=== PATIENT | female | born 1990 | race Caucasian/White ===

== ENCOUNTER 2016-04-17 19:28 | Emergency (ER) | payer OTHER ==
[2016-04-17 20:29] VITALS: BP 109/66; PULSE 69; TEMP 98.7; BMI 30.7
--- NOTE | 2016-04-17 21:10 | PDOC ---
History of Present Illness - General History Source: Patient Exam Limitations: No Limitations - History of Present Illness Initial Comments: 04/17/16 21:30 The patient is a 25 year old female (11 weeks ) with no significant past medical history who presents to the ED with vaginal bleeding that started today. Patient reports at around 5pm she noted heavy vaginal bleeding after wiping. After that, the bleeding gradually decreased on its own. She denies vaginal discharge. Patient reports suprapubic pain and bilateral flank pain. She denies nausea, vomiting, and diarrhea. She also denies dysuria, hematuria, urgency, and frequency. The patient denies fever, chills, cough, SOB, chest pain, and palpitations. Allergies: NKDA Social History: No alcohol, tobacco, or drug use reported. Past Surgical History: <Melani Hylton - Last Filed: 04/17/16 21:32> - General History Source: Patient <Masood Arteaga - Last Filed: 04/18/16 00:32> - General Chief Complaint: Vaginal Bleeding Stated Complaint: VAGINAL BLEEDING/11 WKS Time Seen by Provider: 04/17/16 21:07 Past History <Melani Hylton - Last Filed: 04/17/16 21:32> - Past Medical History Asthma: No Cancer: No Cardiac Disorders: No Diabetes: No HTN: No Seizures: No Thyroid Disease: No - Surgical History Abdominal Surgery: Yes ( x 1) - Immunization History Immunization Up to Date: Yes - Psycho/Social/Smoking Cessation Hx Suicidal Ideation: No Smoking History: Never smoked Have you smoked in the past 12 months: No Information on smoking cessation initiated: No Hx Alcohol Use: No Drug/Substance Use Hx: No Substance Use Type: None Hx Substance Use Treatment: No <Masood Arteaga - Last Filed: 04/18/16 00:32> - Past Medical History Allergies/Adverse Reactions: Allergies Allergy/AdvReac Type Severity Reaction Status Date / Time No Known Allergies Allergy Verified 04/17/16 20:25 Home Medications: Ambulatory Orders Acetaminophen [Tylenol .Regular Strength -] 650 mg PO Q4H PRN #0 tablet Ibuprofen [Motrin -] 600 mg PO Q4H PRN #0 tablet 08/12/11 Pnv Comb.no58/Iron Bisgly/FA [ Capsule] 1 each PO DAILY 30 Days Review of Systems - Review of Systems Able to Perform ROS?: Yes Comments:: 04/17/16 21:30 CONSTITUTIONAL: Absent: fever, no chills, no fatigue EYES: Absent: visual changes ENT: Absent: ear pain, no sore throat CARDIOVASCULAR: Absent: chest pain, no palpitations RESPIRATORY: Absent: cough, no SOB GI: +suprapubic pain Absent: no nausea, no vomiting, no constipation, no diarrhea GENITOURINARY: +bilateral flank pain, vaginal bleeding Absent: dysuria, no frequency, no hematuria MUSCULOSKELETAL: Absent: back pain, no arthralgia, no myalgia SKIN: Absent: rash NEURO: Absent: headache <Melani Hylton - Last Filed: 04/17/16 21:32> *Physical Exam - Vital Signs Last Vital Signs Temp Pulse Resp BP Pulse Ox 98.7 F 69 16 109/66 100 04/17/16 20:25 04/17/16 20:25 04/17/16 20:25 04/17/16 20:25 04/17/16 20:25 - Physical Exam Comments: 04/17/16 21:31 GENERAL: Well-appearing, well-nourished. No apparent distress. HEENT: Normocephalic, atraumatic. PERRL, EOM intact. CARDIOVASCULAR: Normal S1, S2. Regular rate and rhythm. PULMONARY: Clear to auscultation bilaterally. ABDOMEN: Soft, non-distended, suprapubic tenderness to palpation. PELVIC: Deferred to ultrasound MUSCULOSKELETAL: Bilateral CVA tenderness to palpation. EXTREMITIES: Normal ROM in all four extremities. No gross deformities. SKIN: Warm, dry. No rash NEUROLOGICAL: No focal neurological deficits. <Melani Hylton - Last Filed: 04/17/16 21:32> - Vital Signs Last Vital Signs Temp Pulse Resp BP Pulse Ox 98.7 F 69 16 109/66 100 04/17/16 20:25 04/17/16 20:25 04/17/16 20:25 04/17/16 20:25 04/17/16 20:25 <Masood Arteaga - Last Filed: 04/18/16 00:32> ED Treatment Course - LABORATORY CBC & Chemistry Diagram: 04/17/16 21:37 <Masood Arteaga - Last Filed: 04/18/16 00:32> Medical Decision Making - Medical Decision Making 04/18/16 00:32 Dr. Arteaga: The scribe's documentation has been prepared under my direction and personally reviewed by me in its entirery. I confirm that the note above accurately reflects all work, treatment, procedures, and medical decision making performed by me. <Masood Arteaga - Last Filed: 04/18/16 00:32> *DC/Admit/Observation/Transfer - Attestations Scribe Attestion: 04/17/16 21:32 Documentation prepared by Melani Hylton, acting as medical specialist for Masood Arteaga MD <Melani Hylton - Last Filed: 04/17/16 21:32> - Discharge Dispostion Admit: No <Masood Arteaga - Last Filed: 04/18/16 00:32> Diagnosis at time of Disposition: Threatened in early - Discharge Dispostion Disposition: HOME Condition at time of disposition: Stable - Referrals Referrals: Raissa Sinclair MD [Primary Care Provider] - Farzad Woods MD [Staff Physician] - - Patient Instructions Printed Discharge Instructions: DI for Threatened
[2016-04-17 21:56] LABS: URINE APPEARANCE CLEAR; URINE BILIRUBIN NEGATIVE (NEGATIVE); URINE BLOOD 3+ (NEGATIVE); URINE COLOR LT. YELLOW; URINE GLUCOSE (UA) NEGATIVE (NEGATIVE); URINE KETONE NEGATIVE (NEGATIVE); URINE LEUK ESTERASE NEGATIVE (NEGATIVE); URINE NITRITE NEGATIVE (NEGATIVE); URINE PROTEIN NEGATIVE (NEGATIVE); URINE UROBILINOGEN 0.2 E.U/dl E.U./dl (0.2-1.0)
[2016-04-17 22:03] LABS: BASOPHIL 0.7 % (0-2.0); EOSINOPHIL 1.4 % (0-4.5); MCH 27.1 pg (25.7-33.7); MCHC 32.6 g/dl (32.0-36.0); MEAN CELL VOLUME 83.1 fl (80-96); MEAN PLT VOLUME 10.2 fl (7.5-11.1); NEUTROPHILS 70.3 % (42.8-82.8); PLATELET COUNT 233 K/MM3 (134-434); RDW 13.7 % (11.6-15.6); WHITE BLOOD COUNT 9.2 K/mm3 (4.0-10.0)
[2016-04-17 22:10] LABS: URINE BACTERIA RARE /hpf (NONE SEEN); URINE RBC 159 /hpf (0-3); URINE WBC 6 /hpf (3-5)
[2016-04-17 22:16] LABS: INR 0.98 (0.82-1.09); PROTHROMBIN TIME (PATIENT) 10.8 SEC (9.98-11.88)
== END 2016-04-18 01:38 | disposition home or self-care (01) ==
LOC: JER 19:28
DX: O20.0 Threatened abortion (principal); Z3A.11 11 weeks gestation of pregnancy
CPT/HCPCS: 36415; 76817-TC; 81003; 81015; 84702; 84703; 85025; 85610; 86850; 86900; 86901; 99282-25

== ENCOUNTER 2016-04-18 19:22 | Emergency (ER) | payer OTHER ==
[2016-04-18 19:40] VITALS: BP 114/63; PULSE 71; TEMP 98.2; BMI 27.2
--- NOTE | 2016-04-18 20:19 | PDOC ---
History of Present Illness - General History Source: Patient Exam Limitations: No Limitations - History of Present Illness Initial Comments: 04/18/16 20:34 The patient is a 25-year-old female (11 weeks as per patient, 7 weeks as per US, ), with no significant past medical history , who presents to the emergency department with continual vaginal bleeding for 2 days. The patient presented to the ED yesterday for similar symptoms, but reports she continues bleeding. She reports constant lower abdominal pain with cramping. She states her cramping and bleeding have improved, but she returns to the ED because she passed tissue. The patient denies any frequency, urgency, hematuria , or dysuria. The patient denies any nausea, vomiting, diarrhea, or constipation. The patient denies fever, chills, cough, headache, or dizziness. The patient denies chest pain, diaphoresis, palpitations, and shortness of breath. Allergies: NKDA Past Surgical History: Social History: Non-smoker. Denies alcohol or drug use. <Garrett Hendrickson - Last Filed: 04/18/16 22:13> - General History Source: Patient <WallaceMasood armijo - Last Filed: 04/18/16 22:18> - General Chief Complaint: Vaginal Bleeding Stated Complaint: VAGINAL BLEEDING Time Seen by Provider: 04/18/16 20:17 Past History <Garrett Hendrickson - Last Filed: 04/18/16 22:13> - Past Medical History Asthma: No Cancer: No Cardiac Disorders: No Diabetes: No HTN: No Seizures: No Thyroid Disease: No - Surgical History Abdominal Surgery: Yes ( x 1) - Reproductive History Cervical CA: No Dysfunctional Uterine Bleeding: No Ectopic : No Endometrial CA: No Polycystic Ovaries: No Therapeutic (s) & number: No Tubal Ligation: No - Immunization History Immunization Up to Date: Yes - Psycho/Social/Smoking Cessation Hx Suicidal Ideation: No Smoking History: Never smoked Have you smoked in the past 12 months: No Hx Alcohol Use: No Drug/Substance Use Hx: No Substance Use Type: None Hx Substance Use Treatment: No <Masood Arteaga - Last Filed: 04/18/16 22:18> - Past Medical History Allergies/Adverse Reactions: Allergies Allergy/AdvReac Type Severity Reaction Status Date / Time No Known Allergies Allergy Verified 04/18/16 19:38 Home Medications: Ambulatory Orders Acetaminophen [Tylenol .Regular Strength -] 650 mg PO Q4H PRN #0 tablet Ibuprofen [Motrin -] 600 mg PO Q4H PRN #0 tablet 08/12/11 Pnv Comb.no58/Iron Bisgly/FA [ Capsule] 1 each PO DAILY 30 Days Review of Systems - Review of Systems Able to Perform ROS?: Yes Comments:: 04/18/16 20:34 CONSTITUTIONAL: Absent: fever, no chills, no fatigue EYES: Absent: visual changes ENT: Absent: ear pain, no sore throat CARDIOVASCULAR: Absent: chest pain, no palpitations RESPIRATORY: Absent: cough, no SOB GI: Present: +abdominal pain, +cramping Absent: no nausea, no vomiting, no constipation, no diarrhea GENITOURINARY: Present: +vaginal bleeding Absent: dysuria, no frequency, no hematuria MUSKULOSKELETAL: Absent: back pain, no arthralgia, no myalgia SKIN: Absent: rash NEURO: Absent: headache <Garrett Hendrickson - Last Filed: 04/18/16 22:13> *Physical Exam - Vital Signs Last Vital Signs Temp Pulse Resp BP Pulse Ox 98.2 F 71 16 114/63 100 04/18/16 19:38 04/18/16 19:38 04/18/16 19:38 04/18/16 19:38 04/18/16 19:38 - Physical Exam Comments: 04/18/16 20:34 GENERAL: Well-appearing, well-nourished. No apparent distress. HEENT: Normocephalic, atraumatic. PERRL, EOM intact. CARDIOVASCULAR: Normal S1, S2. Regular rate and rhythm. PULMONARY: Clear to auscultation bilaterally. ABDOMEN: +Mild suprapubic tenderness. Non-distended. PELVIC: Refer to ultrasound. EXTREMITIES: Normal ROM in all four extremities. No gross deformities. SKIN: Warm, dry. No rash NEUROLOGICAL: No focal neurological deficits. <Garrett Hendrickson - Last Filed: 04/18/16 22:13> - Vital Signs Last Vital Signs Temp Pulse Resp BP Pulse Ox 98.2 F 71 16 114/63 100 04/18/16 19:38 04/18/16 19:38 04/18/16 19:38 04/18/16 19:38 04/18/16 19:38 <Masood Arteaga - Last Filed: 04/18/16 22:18> ED Treatment Course - LABORATORY CBC & Chemistry Diagram: 04/18/16 20:32 04/18/16 20:32 - RADIOLOGY Radiograph Interpretation: 04/18/16 22:13 EXAM: Tranvaginal US INTERPRETED BY: Dr. Mann REVIEWED BY: Dr. Arteaga IMPRESSION: Findings consistent with the clinical history of miscarriage. No intrauterine gestational sac is seen. 1.2 cm thickness of the endometrial stripe with a heterogeneous echotexture. Follow-up is needed to rule out retained products of conception. <Garrett Hendrickson - Last Filed: 04/18/16 22:13> - LABORATORY CBC & Chemistry Diagram: 04/18/16 20:32 04/18/16 20:32 <Masood Arteaga - Last Filed: 04/18/16 22:18> Medical Decision Making - Medical Decision Making 04/18/16 22:12 Dr. Arteaga: The scribe's documentation has been prepared under my direction and personally reviewed by me in its entirery. I confirm that the note above accurately reflects all work, treatment, procedures, and medical decision making performed by me. <Masood Arteaga - Last Filed: 04/18/16 22:18> *DC/Admit/Observation/Transfer - Attestations Scribe Attestion: 04/18/16 20:34 Documentation prepared by Garrett Hendrickson, acting as manager medical writing for Masood Arteaga DO. <Garrett Hendrickson - Last Filed: 04/18/16 22:13> - Discharge Dispostion Admit: No <Masood Arteaga - Last Filed: 04/18/16 22:18> Diagnosis at time of Disposition: Miscarriage - Discharge Dispostion Disposition: HOME Condition at time of disposition: Stable - Referrals Referrals: jJ Sinclair [Primary Care Provider] - - Patient Instructions Printed Discharge Instructions: DI for Miscarriage Print Language: SERBIAN
[2016-04-18 20:38] LABS: BASOPHIL 0.6 % (0-2.0); EOSINOPHIL 1.2 % (0-4.5); MCH 27.1 pg (25.7-33.7); MCHC 32.6 g/dl (32.0-36.0); MEAN PLT VOLUME 9.6 fl (7.5-11.1); NEUTROPHILS 82.7 % (42.8-82.8); PLATELET COUNT 224 K/MM3 (134-434); RDW 13.5 % (11.6-15.6); WHITE BLOOD COUNT 11.2 K/mm3 (4.0-10.0)
[2016-04-18 21:01] LABS: INR 0.98 (0.82-1.09); PROTHROMBIN TIME (PATIENT) 10.8 SEC (9.98-11.88)
[2016-04-18 21:35] LABS: CALCIUM 8.9 mg/dL (8.5-10.1); CREATININE 0.8 mg/dL (0.55-1.02)
--- NOTE | 2016-04-23 13:46 | PATH ---
Surgical Pathology Report Patient Name: JESSICA WINCHESTER [facility]. Rec. #: [id number] /Age/Gender: 1990 (Age: 25) / F Account: [id number] Location: EMERGENCY ROOM Taken: 04/18/2016 Received: 04/19/2016 Reported: 04/23/2016 Physicians: Blake Guillen M.D. Specimen(s) Received PRODUCTS OF CONCEPTION Clinical History None given Final Diagnosis PRODUCTS OF CONCEPTION: SOMATIC TISSUE PRESENT (NUCLEATED RED BLOOD CELLS). HYDROPIC CHORIONIC VILLI PRESENT (SEE COMMENT). FRAGMENTS OF DECIDUA. Comment: Immunohistochemical stains to rule out partial hydatidiform mole are pending; results will be reported in an addendum. Electronically Signed Mk Kemp M.D. Addendum Reported: 04/29/2016 Addendum Diagnosis Immunohistochemical stains for p57 and Ki67 performed at [place], [place] ([id number]) and interpreted at [facility] show the following: p57 expression is markedly reduced in the chorionic villi; Ki67 proliferation index is high (>20%). DNA Ploidy analysis performed and interpreted at [place], [place] (specimen # [id number]) shows triploid DNA ploidy content. 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 Clinical correlations and followup are suggested. Mk Kemp M.D. Gross Description Received fresh, labeled with just the patient's name and indicated on the requisition to be products of conception, is a 5.5 x 5.0 x 1.0 cm aggregate of gardiner soft tissue fragments. Villous tissue is identified. No somatic tissue is identified. Demographer sections are submitted in one cassette. /04/22/2016 saudi04/22/2016
== END 2016-04-18 22:29 | disposition home or self-care (01) ==
LOC: JER 19:22
DX: O26.891 Other specified pregnancy related conditions, first trimester (principal); O02.1 Missed abortion; Z3A.01 Less than 8 weeks gestation of pregnancy
CPT/HCPCS: 36415; 76817-TC; 80048; 84702; 85025; 85610; 88305-TC; 99281-25

== ENCOUNTER 2018-01-22 23:05 | Inpatient (IN) | payer OTHER ==
[2018-01-23] MEDS ORDERED: AMPICILLIN - 2 GM in SODIUM CHLORIDE 100 ML IVPB ONE
[2018-01-23] MEDS: DEXTROSE 5%-LACTATED RINGERS 1,000 ML IV SCH
[2018-01-23] MEDS ORDERED: AMPICILLIN SODIUM 2 GM VIAL ONE (00:03)
[2018-01-23] MEDS ORDERED: BUTORPHANOL TARTRATE 1 MG/ML VIAL ONE ×2 (00:15)
[2018-01-23] MEDS ORDERED: PROMETHAZINE HCL 25 MG/1 ML VIAL ONE (00:15)
--- NOTE | 2018-01-23 00:15 | HP ---
Past Medical History - Primary Care Physician PCP:: Derek Muñoz - Admission Chief Complaint: 37 weeks, labor History of Present Illness: 27 yo f 37 weeks with previous c/s , in labor cx 7 cm 100 vx -1 mi, bulging, fh cat 1, regular contraction requesting , risks rupture uterus and complication discussed, ulternatives and c/s discussed History Source: Patient Limitations to Obtaining History: No Limitations - Past Medical History ...: 3 ...Para: 1 ...Term: 1 ...: 0 ...Spon : 1 ... Weeks Gestation by Dates: 37.3 ...EDC by Dates: 02/10/18 ...EDC by Sono: 02/10/18 - Past Surgical History Past Surgical History: Yes: Hx Myomectomy: No Hx Transabdominal Cerclage: No - Smoking History Smoking history: Never smoked Have you smoked in the past 12 months: No - Alcohol/Substance Use Hx Alcohol Use: No - Social History Usual Living Arrangement: Yes: With Spouse History of Recent Travel: No Home Medications - Allergies Allergies/Adverse Reactions: Allergies Allergy/AdvReac Type Severity Reaction Status Date / Time No Known Allergies Allergy Verified 01/22/18 23:52 - Home Medications Home Medications: Ambulatory Orders Ferrous Sulfate [Iron] 325 mg PO DAILY 01/22/18 Vitamins (Sjr) - 1 tab PO DAILY 01/22/18 Review of Systems - Review of Systems Constitutional: reports: No Symptoms Eyes: reports: No Symptoms HENT: reports: No Symptoms Neck: reports: No Symptoms Cardiovascular: reports: No Symptoms Respiratory: reports: No Symptoms Gastrointestinal: reports: No Symptoms Genitourinary: reports: No Symptoms Breasts: reports: No Symptoms Reported Musculoskeletal: reports: No Symptoms Integumentary: reports: No Symptoms Neurological: reports: No Symptoms Endocrine: reports: No Symptoms Hematology/Lymphatic: reports: No Symptoms Psychiatric: reports: No Symptoms Physical Exam - Maternity Constitutional: Yes: Well Nourished, No Distress, Calm Eyes: Yes: WNL, Conjunctiva Clear, EOM Intact HENT: Yes: WNL, Atraumatic, Normocephalic Neck: Yes: WNL, Supple, Trachea Midline Cardiovascular: Yes: WNL, Regular Rate and Rhythm Breast(s): Yes: WNL - Abdominal Exam/OB Fundal Height: 38 Number of Fetuses: Single Presentation: Vertex Contractions: Yes Regularity: Regular Intensity: Mod/Strong Monitor Mode: External Heart Rate Location: [facility] Category: I Accelerations: Uniform Decelerations: None - Vaginal Exam/OB Vaginal Bleediing: No Speculum Exam: No Dilatation (cm): 7 cm Effacement (%): 80 Amniotic Membrane Status: Bulging Presentation: Vertex/Position Station: -1 - Physical Exam Musculoskeletal: Yes: WNL Extremities: Yes: WNL Edema: Yes Edema: LLE: Trace, RLE: Trace Deep Tendon Reflex Grade: Normal +2 Psychiatric: Yes: WNL Hemorrhage Risk Assessment - Risk Factors Medium Risk Factors: Yes: Prior , uterine surgery,or multiple laparotomies Risk Score: 1 Risk Level: Medium Risk Problem List - Problems (1) with 37 weeks completed gestation Code(s): Z3A.37 - 37 WEEKS GESTATION OF (2) Previous section complicating Code(s): O34.219 - MATERNAL CARE FOR UNSP TYPE SCAR FROM PREVIOUS DEL (3) Labor established Code(s): GMB7091 - Assessment/Plan requesting , risks explianed , FHM, pain mamnagement
[2018-01-23] MEDS ORDERED: BUTORPHANOL TARTRATE 1 MG/ML VIAL IVPUSH ONE (00:30)
[2018-01-23] MEDS ORDERED: PROMETHAZINE HCL 25 MG/1 ML VIAL IVPUSH ONE (00:30)
[2018-01-23 00:36] VITALS: BMI 32.8
[2018-01-23 00:45] LABS: BASO % 0.8 % (0-2.0); EOS % 0.4 % (0-4.5); HEMATOCRIT 35.5 % (32.4-45.2); HEMOGLOBIN 11.9 GM/dL (10.7-15.3); LYMPH % 13.3 % (8-40); MCHC 33.5 g/dl (32.0-36.0); MEAN CELL VOLUME 83.6 fl (80-96); MEAN PLT VOLUME 10.3 fl (7.5-11.1); MONO % 4.3 % (3.8-10.2); NEUT % 81.2 % (42.8-82.8); PLATELET COUNT 232 K/MM3 (134-434); RBC 4.25 M/mm3 (3.60-5.2); RDW 13.9 % (11.6-15.6); WHITE BLOOD COUNT 11.1 K/mm3 (4.0-10.0)
[2018-01-23] MEDS ORDERED: LIDOCAINE HCL 1% PRESERVATIVE FREE - 30ML VIAL ONE (01:07)
[2018-01-23] MEDS ORDERED: OXYTOCIN 20 UNITS in 0.9% NS 20 UNIT/1,000 ML INFUS.BAG IV ONE ×2 (01:07→04:34)
[2018-01-23 01:22] LABS: INR 0.85 (0.83-1.09)
[2018-01-23 01:23] LABS: ANION GAP 10 MMOL/L (8-16); BLOOD UREA NITROGEN 10 mg/dL (7-18); CALCIUM 8.7 mg/dL (8.5-10.1); CHLORIDE 107 mmol/L (98-107); CO2 23 mmol/L (21-32); CREATININE 0.4 mg/dL (0.55-1.3); GLUCOSE,RANDOM 69 mg/dL (74-106); POTASSIUM 3.9 mmol/L (3.5-5.1); SODIUM 140 mmol/L (136-145)
[2018-01-23 01:25] LABS: ACTIVATED PTT 28.6 SECONDS (25.2-36.5)
[2018-01-23] MEDS: OXYTOCIN 20 UNITS in 0.9% NS 20 UNIT/1,000 ML INFUS.BAG IV SCH ×2 (02:40→06:37)
[2018-01-23] MEDS ORDERED: METHYLERGONOVINE MALEATE 0.2 MG/1 ML AMP IM PRN (03:08)
[2018-01-23] MEDS ORDERED: BENZOCAINE 28 GM HEMORRHOIDAL OINTMENT TP PRN (03:08)
[2018-01-23] MEDS ORDERED: WITCH HAZEL 50% (TUCKS) 40 PAD/JAR PAD TP PRN (03:08)
[2018-01-23] MEDS ORDERED: BENZOCAINE 20% 57 GM BOTTLE TP PRN (03:08)
[2018-01-23] MEDS ORDERED: BISACODYL 10 MG SUPP.RECT RC PRN (03:08)
[2018-01-23] MEDS ORDERED: D5W-LR W/ 20 UNITS OXYTOCIN 1,000 ML IV SCH (03:15)
[2018-01-23] MEDS ORDERED: AMPICILLIN - 1 GM in SODIUM CHLORIDE 100 ML IVPB SCH (04:00)
[2018-01-23] MEDS: ACETAMINOPHEN 325 MG TABLET (FP) PO PRN (05:31)
[2018-01-23] MEDS: IBUPROFEN 600 MG TABLET (FP) PO PRN ×2 (05:31→16:53)
[2018-01-23] MEDS: FERROUS SO4 325 MG TABLET (FP) PO SCH ×2 (09:04→16:52)
[2018-01-23] MEDS: PRENATAL VITAMINS W/ FOLIC ACID TABLET (FP) PO SCH (09:04)
[2018-01-24] MEDS: DEXTROSE 5%-LACTATED RINGERS 1,000 ML IV SCH (01:05)
[2018-01-24] MEDS: ACETAMINOPHEN 325 MG TABLET (FP) PO PRN (08:22)
[2018-01-24] MEDS: IBUPROFEN 600 MG TABLET (FP) PO PRN (08:22)
[2018-01-24] MEDS: FERROUS SO4 325 MG TABLET (FP) PO SCH ×2 (08:22→18:01)
--- NOTE | 2018-01-24 08:28 | PN ---
Post Progress Note - Subjective Subjective: 27 yo Para 2, seen and evaluated. Doing well. Post Day: 1 Type of Delivery: Vital Signs: Vital Signs Temperature 98.4 F 01/24/18 08:07 Pulse Rate 90 01/24/18 08:07 Respiratory Rate 16 01/24/18 08:07 Blood Pressure 106/66 01/24/18 08:07 O2 Sat by Pulse Oximetry (%) 100 01/23/18 04:00 Breast Exam: Yes: Soft Uterus: Yes: Fundus Firm Abdomen/GI: Yes: Abdomen soft, Tolerating PO Lochia: Yes: Rubra Lochia, amount: Moderate Extremities: Yes: Calves non-tender Activity: Ambulating - Labs Labs: CBC WBC 11.1 K/mm3 (4.0-10.0) H 01/23/18 00:05 RBC 4.25 M/mm3 (3.60-5.2) 01/23/18 00:05 Hgb 11.9 GM/dL (10.7-15.3) 01/23/18 00:05 Hct 35.5 % (32.4-45.2) 01/23/18 00:05 MCV 83.6 fl (80-96) 01/23/18 00:05 MCH 28.0 pg (25.7-33.7) 01/23/18 00:05 MCHC 33.5 g/dl (32.0-36.0) 01/23/18 00:05 RDW 13.9 % (11.6-15.6) 01/23/18 00:05 Plt Count 232 K/MM3 (134-434) 01/23/18 00:05 MPV 10.3 fl (7.5-11.1) 01/23/18 00:05 Absolute Neuts (auto) 9.0 K/mm3 (1.5-8.0) H 01/23/18 00:05 Neutrophils % 81.2 % (42.8-82.8) 01/23/18 00:05 Lymphocytes % 13.3 % (8-40) 01/23/18 00:05 Monocytes % 4.3 % (3.8-10.2) 01/23/18 00:05 Eosinophils % 0.4 % (0-4.5) 01/23/18 00:05 Basophils % 0.8 % (0-2.0) 01/23/18 00:05 Nucleated RBC % 0 % (0-0) 01/23/18 00:05 Problem List - Problems (1) Status post vaginal delivery Code(s): FPK8696 - Assessment/Plan Status post vaginal delivery Stable Continue routine care
[2018-01-24 08:47] LABS: BASO % 0.4 % (0-2.0); EOS % 0.9 % (0-4.5); HEMATOCRIT 27.7 % (32.4-45.2); HEMOGLOBIN 9.3 GM/dL (10.7-15.3); LYMPH % 13.1 % (8-40); MCH 28.3 pg (25.7-33.7); MCHC 33.5 g/dl (32.0-36.0); MEAN CELL VOLUME 84.5 fl (80-96); MEAN PLT VOLUME 9.5 fl (7.5-11.1); MONO % 3.9 % (3.8-10.2); NEUT % 81.7 % (42.8-82.8); PLATELET COUNT 176 K/MM3 (134-434); RBC 3.28 M/mm3 (3.60-5.2); RDW 14.3 % (11.6-15.6); WHITE BLOOD COUNT 10.9 K/mm3 (4.0-10.0)
[2018-01-24] MEDS: PRENATAL VITAMINS W/ FOLIC ACID TABLET (FP) PO SCH (10:04)
[2018-01-24] MEDS ORDERED: SENNOSIDES/DOCUSATE COMBO (SENNA PLUS) TABLET (UD) PO PRN (22:00)
--- NOTE | 2018-01-25 03:00 | DS ---
Physical Exam-LINUX UNIX ADMINISTRATOR Vital Signs: Vital Signs Temperature 99.0 F 01/24/18 22:00 Pulse Rate 94 H 01/24/18 22:00 Respiratory Rate 18 01/24/18 22:00 Blood Pressure 107/72 01/24/18 22:00 O2 Sat by Pulse Oximetry (%) 100 01/23/18 04:00 Constitutional: Yes: Well Nourished Eyes: Yes: Conjunctiva Clear HENT: Yes: Atraumatic Neck: Yes: Supple Cardiovascular: Yes: Regular Rate and Rhythm Respiratory: Yes: Regular Gastrointestinal: Yes: Normal Bowel Sounds ...Rectal Exam: Yes: WNL Renal/: Yes: WNL Pelvis: Yes: WNL External Genitalia: Yes: Normal Vaginal Exam: Yes: Normal Cervix: Yes: Normal Uterus: Yes: Firm ....Post : Yes: Uterus firm, Moderate lochia serosa Breast(s): Yes: WNL Musculoskeletal: Yes: WNL Extremities: Yes: WNL Neurological: Yes: Alert, Oriented ...Motor Strength: WNL Psychiatric: Yes: Alert, Oriented Labs: CBC, BMP 01/24/18 08:00 01/23/18 00:05 Delivery - Delivery Type of Anesthesia: Local Episiotomy/Laceration: Vaginal Extension/lac, 2nd degree EBL (cc): 300 Delivery, Single - Stages of Labor Date 1st Stage Initiatied: 01/22/18 Time 1st Stage Initiated: 21:00 Date 2nd Stage Initiated: 01/23/18 Time 2nd Stage Initiated: 02:24 Date of Delivery: 01/23/18 Time of Delivery: 02:35 Time Placenta Delivered: 02:40 - Condition of Infant Slot Floor Person/Retail Sales Clerk Present: No Infant Gender: Female Weight: 7 lb 4 oz Position: Left, OA Total Hours ROM (Hrs/Mins): 16min - 1 Minute Total Score: 9 5 Minutes Total Score: 9 - Feeding Plan Initial Plan: Elected not to breastfeed exclusively throughout hospitalization Discharge Summary Reason For Visit: PREVIOUS C/S IN LABOR Current Active Problems Labor established (Acute) with 37 weeks completed gestation (Acute) Previous section complicating (Acute) Status post vaginal delivery (Acute) Procedures: Principal: Normal spontaneous vaginal delivery Hospital Course: Routine care Condition: Good - Instructions Diet, Activity, Other Instructions: Regular diet No douching, no sexual intercourse x 6 weeks F/U in clinic in 6 weeks Disposition: HOME - Home Medications Comprehensive Discharge Medication List: Ambulatory Orders Ferrous Sulfate [Iron] 325 mg PO DAILY 01/22/18 Vitamins (Sjr) - 1 tab PO DAILY 01/22/18
[2018-01-25 08:18] VITALS: BP 121/78; PULSE 71; TEMP 98.8
[2018-01-25] MEDS: FERROUS SO4 325 MG TABLET (FP) PO SCH (09:09)
[2018-01-25] MEDS: PRENATAL VITAMINS W/ FOLIC ACID TABLET (FP) PO SCH (10:09)
== END 2018-01-25 13:25 | disposition home or self-care (01) | DRG 560 ==
LOC: JDEL 23:05 → JLDR 23:50 → J3W 01-23 05:00
PROVIDERS: ADMIT Obstetrics & Gynecology; ATTEND Obstetrics & Gynecology
PROC: 0KQM0ZZ Repair Perineum Muscle, Open Approach (ICD-10-PCS; principal; 2018-01-23)
PROC: 10E0XZZ Delivery of Products of Conception, External Approach (ICD-10-PCS; 2018-01-23)
DX: O70.1 Second degree perineal laceration during delivery (principal); Z3A.37 37 weeks gestation of pregnancy; Z37.0 Single live birth
CPT/HCPCS: 36415; 59409; 80048; 85025; 85610; 85730; 86593; 86850; 86900; 86901; 90686; G0008

== ENCOUNTER 2018-03-23 05:33 | Day surgery (SDC) | payer OTHER ==
[2018-03-23 07:22] VITALS: BMI 28.7
[2018-03-23] MEDS ORDERED: SEVOFLURANE 250 ML BTL ONE (07:57)
[2018-03-23] MEDS ORDERED: IBUPROFEN 800 MG/8 ML IJ IVPB ONE (07:57)
[2018-03-23] MEDS ORDERED: LIDOCAINE HCL/PF 2% SDV 5ML VIAL ONE (08:11)
[2018-03-23] MEDS ORDERED: ROCURONIUM BROMIDE 50 MG/5 ML VIAL ONE (08:11)
[2018-03-23] MEDS ORDERED: DEXAMETHASONE SOD PHOSPHATE 4 MG/1 ML VIAL ONE (08:11)
[2018-03-23] MEDS ORDERED: PROPOFOL 20 ML ONE ×2 (08:11→09:41)
[2018-03-23] MEDS ORDERED: MIDAZOLAM HCL 2 MG/2 ML SINGLE DOSE VIAL ONE (08:11)
[2018-03-23] MEDS ORDERED: SUCCINYLCHOLINE CHLORIDE 200 MG/10 ML VIAL ONE (08:11)
--- NOTE | 2018-03-23 08:54 | HP ---
Admitting History and Physical - Admission Chief Complaint: Desires sterilization History of Present Illness: 27yo here for sterilization. Has 2 children, desires no further childbearing. Declined alternative methods of contraception. Adamant today that she would still like sterilizaiton. No other concerns today. Denies HSU, vision changes, CP/SOB. No N/V. History Source: Patient - Past Medical History Cardiovascular: No: AFIB, Aneurysm, Aortic Insufficiency, Aortic Stenosis, CAD, CHF, Deep Vein Thrombosis, HTN, Hyperlipdemia, VA, Mitral Insufficiency, Mitral Stenosis, Murmur, Pulmonary Hypertension, Other Pulmonary: No: Asthma, Bronchitis, Cancer, COPD, O2 Dependent, Pneumonia, Previously Intubated, Pulmonary Embolus, Pulmonary Fibrosis, Sleep Apnea, Other Gastrointestinal: No: Ascites, Cancer, Constipation, Crohn's Disease, Diverticulitis, Diverticulosis, Esophageal Varices, Gastritis, GERD, GI Bleed, Hemorrhoids, Hiatal Hernia, Inflamatory Bowel Disease, Irritable Bowel Disease, Pancreatitis, Peptic Ulcer Disease, Ulcerative Colitis, Other Hepatobiliary: No: Cirrhosis, Cholelithiasis, Cholecystitis, Choledocholithiasis , Hepatitis A, Hepatitis B, Hepatitis C, Other Renal/: No: Renal Failure, Renal Inusuff, BPH, Cancer, Hematuria, Hemodialysis , Neurogenic Bladder, Renal Calculi, UTI, Other Reproductive: No: Ectopic , Endometriosis, Fibroids, PID, Polycystic Ovary Syndrome, Postmenopausal, Other ...LMP: 01/27/16 ...: No ...: 3 - Past Surgical History Past Surgical History: Yes: - Smoking History Smoking history: Never smoked Have you smoked in the past 12 months: No - Alcohol/Substance Use Hx Alcohol Use: No - Social History History of Recent Travel: No Home Medications - Allergies Allergies/Adverse Reactions: Allergies Allergy/AdvReac Type Severity Reaction Status Date / Time No Known Allergies Allergy Verified 03/23/18 07:47 - Home Medications Home Medications: Ambulatory Orders Ferrous Sulfate [Iron] 325 mg PO DAILY 01/22/18 Vitamins (Sjr) - 1 tab PO DAILY 01/22/18 Physical Examination Vital Signs: Vital Signs Temperature 98.4 F 03/23/18 07:21 Pulse Rate 92 H 03/23/18 07:21 Respiratory Rate 16 03/23/18 07:21 Blood Pressure 110/74 03/23/18 07:21 O2 Sat by Pulse Oximetry (%) 98 03/23/18 07:20 Constitutional: Yes: Well Nourished, No Distress, Calm Eyes: Yes: WNL, Conjunctiva Clear, EOM Intact HENT: Yes: WNL, Atraumatic, Normocephalic Neck: Yes: WNL, Supple, Trachea Midline Cardiovascular: Yes: WNL, Regular Rate and Rhythm Respiratory: Yes: WNL, Regular, CTA Bilaterally Gastrointestinal: Yes: WNL, Normal Bowel Sounds Musculoskeletal: Yes: WNL Extremities: Yes: WNL Edema: No Integumentary: Yes: WNL Neurological: Yes: WNL, Alert, Oriented ...Motor Strength: WNL Psychiatric: Yes: WNL Problem List - Problems (1) Admission for sterilization Code(s): Z30.2 - ENCOUNTER FOR STERILIZATION Assessment/Plan 27yo here for LSC bilateral salpingectomy Risk of procedure reiterated including permanency, bleeding, infection and injury to surrounding tissue. Alternatives offered, declined by patient. Discussed any future childbearing would have to be by ART. All questions answered; consents signed. Pablo Goddard MD
[2018-03-23] MEDS ORDERED: BUPIVACAINE HCL/PF 0.25% (2.5MG/ML) 10 ML VIAL IJ ONE ×2 (09:39)
[2018-03-23] MEDS ORDERED: GLYCOPYRROLATE 0.2 MG/1 ML VIAL ONE (09:41)
[2018-03-23] MEDS ORDERED: NEOSTIGMINE METHYLSULFATE 0.5 MG/ML - 10 ML MDV ONE (09:41)
[2018-03-23] MEDS ORDERED: BENZOIN TINCTURE SWABSTICK TP ONE (10:09)
[2018-03-23] MEDS ORDERED: ONDANSETRON 4 MG/2 ML VIAL IVPUSH PRN (10:34)
[2018-03-23] MEDS ORDERED: oxyCODONE HCL 5 MG TABLET PO PRN (10:34)
[2018-03-23] MEDS ORDERED: LACTATED RINGERS SOLUTION 1,000 ML IV SCH (10:45)
[2018-03-23 11:38] VITALS: TEMP 98.4
[2018-03-23 14:22] VITALS: BP 105/68; PULSE 72
--- NOTE | 2018-03-23 16:54 | OP ---
Operative Note - Note: Operative Date: 03/23/18 Pre-Operative Diagnosis: elective sterilization Operation: laparoscopic bilateral salpingectomy. repair of vaginal laceration ( s/p vaginal deliverly @ 8wks ago) Findings: laceration of vagina s/p vaginal delivery several weeks ago. purulence noted Post-Operative Diagnosis: Same as Pre-op Surgeon: Deb Goddard Photographic Spotter: Vira Alston Anesthesiologist/DIGITAL LIBRARIAN: Norma Carias Anesthesia: General Specimens Removed: bilateral fallopian tubes Estimated Blood Loss (mls): 75 Drains, Volume Out (mls): 100 (vega) Fluid Volume Replaced (mls): 600 Operative Report Dictated: Yes
--- NOTE | 2018-03-23 16:55 | SURG ---
Surgery Environmental Services Supervisor Note Environmental Services Supervisor: Vira Alston PA-C Date of Service: 03/23/18 Diagnosis: elective sterilization Procedure: laparoscopic bilateral salpingectomy repair of vaginal laceration (s/p vaginal deliverly @ 8wks ago) I was present for the entirety of the operative procedure. For further detail, please refer to operative report. Visit type - Case Type Case Type: Scheduled - Emergency Emergency Visit: No - New patient This patient is new to me today: Yes Date on this admission: 03/23/18
--- NOTE | 2018-03-23 19:39 | OP ---
DATE OF OPERATION: 03/23/2018 PREOPERATIVE DIAGNOSIS: Desires sterilization. POSTOPERATIVE DIAGNOSES: Desires sterilization, poorly-healed vaginal laceration repair. PROCEDURE: Laparoscopic bilateral salpingectomy, vaginal laceration revision. ANESTHESIA: General. SURGEON: Deb Goddard MD IT SYSTEMS MANAGER: Vira Alston PA-C INTRAVENOUS FLUIDS: LR 600. ESTIMATED BLOOD LOSS: 75 mL from vaginal laceration repair predominantly. URINE OUTPUT: 100 mL FINDINGS: Normal uterus, fallopian tubes, ovaries bilaterally. Normal appendix. Vaginal exam revealed normal external labia majora, labia minora with small hole defect in the patient's right labia minora, the midline perineum with granulation tissue running vertically, tight vaginal band, purulent vaginal discharge noted and seen coming through a midline defect along in the vaginal perineum just above the granulation tissue. COMPLICATIONS: None. CONDITION: Stable to Recovery. NATURE OF PROCEDURE: After appropriate consents were signed, patient was taken to the operating room. General anesthesia was administered. She was placed in lithotomy position. A Donahue catheter was inserted. At the time of catheter insertion, vaginal findings above were noted, and given the purulent discharge and concern for potential abscess and bleeding, decision was made to revise the vaginal laceration repair at the end of the laparoscopy. Vaginal culture was taken. The abdomen and vaginal area were prepped and draped in the normal sterile fashion. Attention was then paid to the patient's abdomen where 0.25% Marcaine was injected in the umbilicus. Under direct visualization, a 5-mm trocar was introduced into the patient's abdomen. The abdomen was insufflated with gas. Patient was placed in Trendelenburg position. Normal uterus, fallopian tubes, ovaries were visualized. A 5-mm port was introduced into the patient's left and right lower quadrants after the areas had been injected with the 0.25% Marcaine and the trocar had been introduced under direct visualization. There was no issue with the port entry. Using the grasper, the left fallopian tube was grasped, elevated, followed up through to the fimbriated ends which were noted to be normal. Using the LigaSure device, the fallopian tube was along the mesosalpinx. The left fallopian tube was transected and ligated at the insertion to the uterus. The bite sites were noted to be hemostatic. The left fallopian tube was then removed through the left lower quadrant port. Attention was then paid to the right fallopian tube which was Ligated along on the mesosalpinx and then transected at its insertion to the uterus with the LigaSure without difficulty. The right fallopian tube was removed through the left lower quadrant port. Both transection sites on both adnexa were examined and noted to be hemostatic. The left and right lower quadrant ports were removed under visualization without difficulty. The umbilical port was then removed. Abdomen was deflated of gas. The incision points were closed with a 4-0 Biosyn, and appropriate bandages were placed. Attention was then paid to the patient's vaginal laceration revision. The Donahue catheter was removed. A rectal exam was performed which noted good sphincter tone. Gloves were changed, and the revision was undertaken. Using a scalpel along the midline, the vaginal tissue on the perineum was incised to release the tight band and just below the inferior border of the granulation tissue, this was then irrigated. The excess granulation tissue was excised, and using a 3-0 Vicryl, the vaginal laceration was repaired in the usual fashion with good cosmesis. The defect on the patient's labia minora was not repaired given the defect was small and repair may cause more pain and discomfort. Vaginal packing was placed to help achieve hemostasis, although no brisk bleeding was seen. The vaginal packing was removed before the patient was discharged to home. Patient was discharged home with a prescription for Keflex antibiotics. All sponge, lap, needle counts were correct x3. Patient did tolerate the procedure well and was taken to the recovery area in stable condition. MD JUAN GONZALEZ/[id number] MTDD
--- NOTE | 2018-03-24 17:24 | PATH ---
Surgical Pathology Report Patient Name: JESSICA LARSON [facility]. Rec. #: [id number] /Age/Gender: 1990 (Age: 27) / F Account: [id number] Location: [facility] SURGICAL Taken: 03/23/2018 Received: 03/23/2018 Reported: 03/24/2018 Physicians: Deb Goddard Specimen(s) Received RIGHT AND LEFT FALLOPIAN TUBE Clinical History Sterilization Final Diagnosis FALLOPIAN TUBES, RIGHT AND LEFT, BILATERAL LAPAROSCOPIC SALPINGECTOMY: TWO (2) UNREMARKABLE FALLOPIAN TUBES (INCLUDING FIMBRIATED END AND FULL LUMINAL PORTION). Electronically Signed Lakisha Alexis M.D. Gross Description Received in formalin labeled "right and left fallopian tubes," are 2 undesignated, fimbriated fallopian tubes averaging 4 cm in length. The outer surfaces are gardiner-pink and smooth. Sectioning reveals unremarkable lumens. News Copy Editor sections are submitted in 4 cassettes as follows: 1-arbitrarily designated "fallopian tube 1" fimbria; 2-cross sections of "fallopian tube 1"; 3-arbitrarily designated "fallopian tube 2" fimbria; 4-cross sections of "fallopian tube 2." 03/23/2018 saudi03/23/2018
== END 2018-03-23 14:22 | disposition home or self-care (01) ==
LOC: JASU-SURG 05:33
PROVIDERS: ATTEND Obstetrics & Gynecology
PROC: 0UB74ZZ Excision of Bilateral Fallopian Tubes, Percutaneous Endoscopic Approach (ICD-10-PCS; principal; 2018-03-23 09:00)
DX: Z30.2 Encounter for sterilization (principal); N89.8 Other specified noninflammatory disorders of vagina
CPT/HCPCS: 84703; 87070; 87186; 87205; 88302-TC; 94760